=== PATIENT | female | born 1985 | race African-American/Black ===

== ENCOUNTER 2018-08-05 08:40 | Emergency (ER) | payer BC ==
[~2018-08-05] VITALS: Ht 175.3 cm; Wt 86.0 kg
[2018-08-05 08:44] VITALS: BP 131/79
== END 2018-08-05 11:28 | disposition home or self-care (01) ==
LOC: ER 08:40
DX: L23.9 Allergic contact dermatitis, unspecified cause (principal)
CPT/HCPCS: 81025; 99282